=== PATIENT | male | born 1990 | race Caucasian/White ===

== ENCOUNTER → 2022-07-02 | Emergency (ER) | payer OTHER ==
[~2022-07-02] VITALS: Ht 177.8 cm; Wt 95.3 kg
== END | disposition left against medical advice (07) ==
LOC: ER 11:27
DX: S46.212A Strain of muscle, fascia and tendon of other parts of biceps, left arm, initial encounter (principal); X58.XXXA Exposure to other specified factors, initial encounter; Y93.B9 Activity, other involving muscle strengthening exercises; Y92.9 Unspecified place or not applicable; Y99.9 Unspecified external cause status; M79.622 Pain in left upper arm
CPT/HCPCS: 73220

== ENCOUNTER 2025-06-11 15:28 | Emergency (ER) | payer OTHER ==
[~2025-06-11] VITALS: Ht 177.8 cm; Wt 93.9 kg
[2025-06-11] MEDS ORDERED: KETOROLAC TROMETHAMINE 30 MG VIAL IM STA (19:00)
[2025-06-11] MEDS ORDERED: KETOROLAC TROMETHAMINE 30 MG VIAL ONE (19:53)
== END 2025-06-11 20:30 | disposition home or self-care (01) ==
LOC: ER 15:28
DX: S79.812A Other specified injuries of left hip, initial encounter (principal); V23.49XA Other motorcycle driver injured in collision with car, pick-up truck or van in traffic accident, initial encounter; Y93.89 Activity, other specified; Y92.413 State road as the place of occurrence of the external cause

== ENCOUNTER 2025-07-12 08:12 | Outpatient (CLI) | payer OTHER | END 2025-07-12 08:14 | disposition home or self-care (01) | LOC: SONOGRAMA 08:12 | PROVIDERS: ATTEND Internal Medicine Gastroenterology | DX: K80.20 Calculus of gallbladder without cholecystitis without obstruction (principal) ==